=== PATIENT | male | born 1960 | race Caucasian/White ===

== ENCOUNTER 2024-07-29 08:20 | Outpatient (OUT) | payer OTHER, SELFPAY ==
--- NOTE | 2024-07-29 | PCN_ITS ---
Requesting Physician: Procedure Date: 07/29/2024 TREADMILL STRESS TEST REASON FOR THE TEST: [employer] clearance. The procedure was discussed with patient in details, including the risks and benefits, and he was agreeable to proceed. Informed consent was obtained. Patient?s resting heart rate 69 beats per minute, resting blood pressure 110/74 mm/Hg. The patient was exercised according to standard Jeremias protocol and he was able to finish 9 minutes and 2 seconds, achieving max heart rate of 133 beats per minute, which represents 85% of age predicted maximum heart rate, and maximal blood pressure of 148/86 mm/Hg. Exercise was terminated secondary to fatigue and achievement of target heart rate. The patient did not experience any chest, neck, jaw or arm discomfort. Patient was monitored about 8 minutes into recovery phase with heart rate back to 87 beats per minute and blood pressure to 128/78 mm/Hg. Resting EKG showed normal sinus rhythm, heart rate 67 beats per minute, normal EKG. EKG during exercise, at peak exercise, and during recovery phase did not show significant ST or T changes or significant arrhythmias. CONCLUSION: 1. Maximal stress test achieving 85% of age predicted maximum heart rate. 2. Appropriate heart rate and blood pressure response to exercise. 3. Good exercise tolerance. 4. This stress test is negative for exercise induced ischemic symptoms, EKG changes, or arrhythmias. 5. Chen score 9 consistent with a low cardiac risk. MTDD
--- NOTE | 2024-07-29 | NM_ITS ---
Patient Name: KAILEY MITCHELL MR#: [id number] : 1960 Exam Date: 07/29/2024 Ordering Doctor: DR HANNAH LAWSON M.D. RADIOLOGY REPORT PROCEDURE: NM FERCHO PERF SPECT REST STR COMPARISON: None. INDICATIONS: CORONARY ARTERY DISEASE DUE TO LIPID RICH PLAQUE TECHNIQUE: Exam Description: Stress/Rest one day protocol gated SPECT Rest Imagin.5 mCi Tc-99m Cardiolite IV on 07/29/2024 Stress Imaging 30.8 mCi Tc-99m Cardiolite IV on 07/29/2024 Exercise Protocol: Jeremias Heart Rate (bpm): Rest: 69 Max: 133 PMHR: 85 Blood Pressure: Rest: 110/74 Max: 148/86 Exercise Time: Minutes: 9 Seconds: 02 Stage Reached: Stage: 3 Mets 10.10 Symptoms: Rest and peak stress ECG findings were pending and the exercise portion of the study was pending per attending physician Dr. ESTRADA . For more details, please see separate cardiac stress test report. FINDINGS: QUALITY OF STUDY: Adequate PERFUSION DEFECT: LOCATION: Inferior SIZE: Moderate SEVERITY: Moderate TYPE: Present on rest images predominantly; likely representing diaphragmatic attenuation WALL MOTION: Normal wall motion LV SIZE: 95 mL. TID / TCD: 0.7 LVEF: Calculated EF 61%. SUMMARY: Myocardial perfusion imaging study is normal CONCLUSION: 1. Normal myocardial perfusion with diaphragmatic attenuation 2. Normal global left ventricular systolic function 3. No evidence of transient ischemic dilatation Interpreting physician: Hannah Lawson MD Approved by: Hannah Lawson M.D. on 07/29/2024 at 14:44
--- NOTE | 2024-07-29 08:34 | CA_ITS ---
Patient Name: KAILEY MITCHELL MR#: [id number] : 1960 Exam Date: 07/29/2024 Ordering Doctor: DR HANNAH LAWSON M.D. ECHOCARDIOGRAM REPORT PROCEDURE: CA ECHO DOPPLER COMPLETE INDICATIONS: Dizziness COMPARISON: None. DESCRIPTION: COMPLETE ECHOCARDIOGRAM Real-time transthoracic echocardiography with 2D, M-mode, spectral and color flow Doppler performed. QUALITY: Technical quality was good. LEFT VENTRICLE: Normal chamber size. Mild concentric left ventricular hypertrophy. LV EF: Global left ventricular systolic function is normal. Calculated left ventricular ejection fraction is 62%. No significant wall motion abnormalities DIASTOLIC: Normal diastolic function. ATRIAL SEPTUM: Inadequately seen. LEFT ATRIUM: Normal chamber size. RIGHT ATRIUM: Mild dilatation. RIGHT VENTRICLE: Appears enlarged. Normal right ventricular systolic function. TRICUSPID VALVE: Normal mobility and thickness. No stenosis with mild regurgitation. No evidence of pulmonary hypertension. RVSP 29mmHg. MITRAL VALVE: Normal mobility and thickness. No evidence of mitral valve stenosis. There is no mitral annular calcification. Trivial mitral regurgitation. AORTIC VALVE: Normal trileaflet appearance. Normal leaflet mobility. No evidence of aortic valve stenosis. No aortic regurgitation. AORTIC ROOT: Normal diameter and appearance. PULMONIC VALVE: Normal thickness and mobility. No stenosis. Trivial regurgitation. PERICARDIUM: No evidence of pericardial effusion. IVC: Collapses with inspirations. Normal size. CONCLUSION: 1. Global left ventricular systolic function is normal; visually estimated ejection fraction is 60 to 65% 2. The right ventricle appears enlarged with normal systolic function 3. Right atrium is mildly dilated 4. Normal diastolic function 5. Mild tricuspid regurgitation Adult Echocardiography Procedure Report Left Ventricle LVEDD (3.7 - 5.6 cm): 4.58 cm LVESD (2.2 - 4.0 cm): 2.98 cm LVIVS thickness (0.6 - 1.2 cm): 1.14 cm LVPW thickness (0.5 - 1.0 cm): 1.14 cm e': 0.10 m/s E - e': 5.64 LVOT Max Gradient: 2.88 mm[Hg] LVOT Area (cm2): 0.85 m/s Peak Velocity (LVOT): 0.85 m/s Mean Velocity (LVOT): 0.60 m/s LVOT Diameter 2.28 cm Left Atrium LA Volume Index (2D A2C): 26.81 ml/m2 Left Atrium Systolic Dimension: 3.37 cm Mitral Valve MV E to A Ratio: 0.98 Mitral Valve A-Wave Peak Velocity: 0.60 m/s Mitral Valve E-Wave Peak Velocity: 0.59 m/s Right Ventricle RV Internal Diastolic Dimension: 3.93 cm Aorta AO Root Diam: 3.48 cm Ascending Ao Diam: 3.27 cm Aortic Valve AoV Area (Peak Alexsander): 2.53 cm2, 2.53 cm2 AoV Area (VTI): 2.94 cm2, 2.94 cm2 Peak Velocity(Antegrade Flow): 1.37 m/s Peak Gradient(Antegrade Flow): 7.51 mm[Hg] Mean Velocity(Antegrade Flow): 0.93 m/s Mean Gradient(Antegrade Flow): 4.01 mm[Hg] Velocity Time Integral: 24.31 cm Tricuspid Valve Peak Velocity (Regurgitant Flow): 1.93 m/s, 1.81 m/s, 2.55 m/s Pulmonic Valve Mean Gradient: 2.30 mm[Hg] Mean Velocity: 0.69 m/s Peak Velocity: 1.09 m/s, 1.11 m/s Peak Gradient: 4.74 mm[Hg], 4.95 mm[Hg] Right Atrium Right Atrium Systolic Pressure: 63.71 ml, 63.71 ml Dictated by: Hannah Lawson M.D. on 07/29/2024 at 14:45 Approved by: Hannah Lawson M.D. on 07/29/2024 at 14:48
== END 2024-07-29 08:21 | disposition home or self-care (01) ==
LOC: NM 08:20
PROVIDERS: PCP Family Medicine; Visit Provider Internal Medicine Interventional Cardiology
DX: I25.10 Atherosclerotic heart disease of native coronary artery without angina pectoris (principal); I25.83 Coronary atherosclerosis due to lipid rich plaque; R68.89 Other general symptoms and signs
CPT/HCPCS: 78452; 93017; 93306; A9500